=== PATIENT | male | born 1950 | race Caucasian/White ===

== ENCOUNTER 2019-10-10 06:43 | Outpatient (REF) | payer MEDICARE, BC, SELFPAY ==
[2019-10-10 12:55] LABS: Thyroid Stimulating Hormone 4.03 uIU/mL (0.27-4.20)
[2019-10-10 13:07] LABS: Chol HDL Ratio 3.35 mg/dL (1.0-5.00); Cholesterol 124 mg/dL (0-200); Glucose 133 mg/dL (65-115); HDL Cholesterol 37 mg/dL (60-100); LDL Cholesterol Calculated 70 mg/dL (50-129); LDL HDL Ratio 1.89 RATIO (0.00-3.22); Triglycerides 83 mg/dL (0-150)
[2019-10-10 13:23] LABS: Estmated Average Glucose 148; Hemoglobin A1C 6.8 % (4.0-6.0)
== END 2019-10-10 06:44 | disposition home or self-care (01) ==
LOC: LAB 06:43
PROVIDERS: Family Provider Family Medicine; PCP Family Medicine; Visit Provider Dermatology
DX: Z01.89 Encounter for other specified special examinations (principal)
CPT/HCPCS: 80061; 82947; 83036; 84153; 84443

== ENCOUNTER → 2019-11-18 07:50 | Outpatient (BNVA) | payer MEDICARE, BC, SELFPAY | PROVIDERS: Family Provider Family Medicine; PCP Family Medicine; Visit Provider Urology | DX: C61 Malignant neoplasm of prostate (principal) | CPT/HCPCS: 81001 ==

== ENCOUNTER → 2020-03-23 07:11 | Outpatient (BNVA) | payer MEDICARE, BC, SELFPAY | PROVIDERS: Family Provider Family Medicine; PCP Family Medicine; Visit Provider Urology | DX: C61 Malignant neoplasm of prostate (principal) | CPT/HCPCS: 81001; 84153 ==

== ENCOUNTER → 2020-07-26 07:49 | Outpatient (BNVA) | payer MEDICARE, BC, SELFPAY | PROVIDERS: Family Provider Family Medicine; PCP Family Medicine; Visit Provider Urology | DX: C61 Malignant neoplasm of prostate (principal); N39.3 Stress incontinence (female) (male); N52.31 Erectile dysfunction following radical prostatectomy | CPT/HCPCS: 81003; 84153 ==

== ENCOUNTER → 2021-01-24 07:53 | Outpatient (BNVA) | payer MEDICARE, BC, SELFPAY | PROVIDERS: Family Provider Family Medicine; PCP Family Medicine; Visit Provider Urology | DX: N39.3 Stress incontinence (female) (male) (principal); M54.5 Low back pain; C61 Malignant neoplasm of prostate; N52.31 Erectile dysfunction following radical prostatectomy | CPT/HCPCS: 81003 ==

== ENCOUNTER → 2021-01-28 09:43 | Outpatient (BNVA) | payer MEDICARE, BC, SELFPAY | PROVIDERS: Family Provider Family Medicine; PCP Family Medicine; Referring Provider Urology; Visit Provider Orthopaedic Surgery | DX: M43.17 Spondylolisthesis, lumbosacral region (principal); M51.37 Other intervertebral disc degeneration, lumbosacral region | CPT/HCPCS: 72110 ==

== ENCOUNTER → 2021-05-24 08:47 | Outpatient (BNVA) | payer SELFPAY | PROVIDERS: Family Provider Family Medicine; PCP Family Medicine; Visit Provider Family Medicine | DX: C61 Malignant neoplasm of prostate (principal); M54.5 Low back pain; N52.31 Erectile dysfunction following radical prostatectomy; N39.3 Stress incontinence (female) (male) | CPT/HCPCS: 80061 ==

== ENCOUNTER → 2021-07-27 08:19 | Outpatient (BNVA) | payer MEDICARE, BC, SELFPAY | PROVIDERS: Family Provider Family Medicine; PCP Family Medicine; Visit Provider Urology | DX: N39.3 Stress incontinence (female) (male) (principal); R97.20 Elevated prostate specific antigen [PSA]; C61 Malignant neoplasm of prostate | CPT/HCPCS: 81003; 84153 ==

== ENCOUNTER → 2022-01-24 07:54 | Outpatient (BNVA) | payer MEDICARE, BC, SELFPAY | PROVIDERS: Family Provider Family Medicine; PCP Family Medicine; Referring Provider Family Medicine; Visit Provider Surgery | DX: Z12.11 Encounter for screening for malignant neoplasm of colon (principal) | CPT/HCPCS: 99024; 99203 ==

== ENCOUNTER 2022-02-23 07:21 | Outpatient (CLI) | payer MEDICARE, BC, SELFPAY ==
[2022-02-23 08:30] LABS: Prostate Specific Antigen 0.179 ng/mL (0-4)
== END 2022-02-23 07:22 | disposition home or self-care (01) ==
LOC: LAB 07:21
PROVIDERS: PCP Family Medicine; Visit Provider Urology
DX: C61 Malignant neoplasm of prostate (principal); N39.3 Stress incontinence (female) (male); N52.31 Erectile dysfunction following radical prostatectomy
CPT/HCPCS: 36415; 81003; 84153; 99213

== ENCOUNTER 2022-04-05 07:45 | Day surgery (SDC) | payer MEDICARE, BC, SELFPAY ==
[2022-03-31 12:41] VITALS: BMI 29.0
[2022-04-05 08:00] VITALS: BP 133/83; PULSE 65; RESP 18; TEMP 36.1; O2SAT 94
[2022-04-05] MEDS: sodium chloride 0.9% 1,000 ML 30 ML IV (08:08)
--- NOTE | 2022-04-05 08:29 | ANES.PREANE2 ---
Pre-Anesthetic Assessment Height/Weight: Height 1.8 m Weight 94.347 kg Temp Pulse Resp BP Pulse Ox O2 Del Method 97.0 F L 65 18 133/83 94 04/05/22 08:00 04/05/22 08:00 04/05/22 08:00 04/05/22 08:00 04/05/22 08:00 04/05/22 08:00 Preop Diagnosis: diagnostic Operation Date: 04/05/22 09:00 Proposed Procedures p Colonoscopy 17426,Z12.11(Not Applicable) - Joseph Avila MD Familial anesthetic complications: NONE Was Beta Savage taken within 24 hours: Yes Was Clonidine taken within 24 hours: N/A Last intake: Intake Last Liquid Date 04/04/22 Last Liquid Time 21:30 Last Solid Date 04/03/22 Social No alcohol and No tobacco Exam alert, oriented x 3, clear to auscultation bilaterally and regular rate & rhythm Airway Submandibular: within normal limits Cervical ROM: within normal limits Mallampati: Class II Comments: Comments: missing some teeth Pulmonary None reported CV/HEM Coronary Artery Disease (S/P STENT ) and Hypertension Walks three miles a day Hx of prostate cancer Hepatic None reported GI None reported Metabolic Diabetes Mellitus Musc/skel Osteoarthritis/DJD and None reported Neuropsych None reported Anesthetic Plan ASA status: 3 (72 year old male with hx of CAD w/ stents, HTN, DM, prostate cancer ) Anesthesia: Anesthesia Evaluation, General and MAC Other: I discussed with the patient risks, goals, and benefits of MAC and general anesthesia. We discussed spectrum of MAC anesthesia including conversion to general as well as possibility of recall of intraoperative stimuli including discomfort/pain. Patient agrees to proceed with MAC. Risk of > 500 ml blood loss (7ml/kg in children): No Medications/Allergies Home Medications Medication Instructions Recorded Confirmed Last Taken Type amlodipine 10 mg tablet 10 mg PO DAILY 11/18/19 04/05/22 04/05/22 History atorvastatin 40 mg tablet 40 mg PO DAILY 11/18/19 04/05/22 04/04/22 History carvedilol 6.25 mg tablet 6.25 mg PO BID 11/18/19 04/05/22 04/05/22 History lisinopril 40 mg tablet 40 mg PO BID 11/18/19 04/05/22 04/04/22 History multivitamin,zc-[id number] 1 tab PO DAILY 11/18/19 04/05/22 04/04/22 History (Complete Multivitamin) niacin 500 mg capsule,extended 500 mg PO BID 11/18/19 04/05/22 04/04/22 History release nitroglycerin 0.4 mg sublingual 0.4 mg sublingual Q5M PRN Chest 11/18/19 03/31/22 Unknown History tablet (Nitrostat) Pain aspirin 81 mg tablet,delayed 81 mg PO DAILY 01/24/22 04/05/22 04/01/22 History release (Adult Low Dose Aspirin) alogliptin 12.5 mg-metformin 1,000 1 tab PO BID 03/31/22 04/05/22 04/04/22 History mg tablet isosorbide mononitrate 30 mg 30 mg PO DAILY 03/31/22 04/05/22 04/05/22 History tablet,extended release 24 hr Allergies Allergy/AdvReac Type Severity Reaction Status Date / Time No Known Allergies Allergy Verified 03/31/22 12:35 Current Medications Generic Name Dose Route Start Last Admin Trade Name Freq PRN Reason Stop Dose Admin Sodium Chloride 1,000 mls @ 30 mls/hr 04/05/22 08:00 04/05/22 08:08 Sodium Chloride 0.9% IV 04/06/22 07:59 30 mls/hr .Q24H JUDY Administration PFSH Anesthesia Medical History Erectile dysfunction Low back pain Prostate cancer Stress incontinence Surgical History H/O prostate biopsy H/O prostatectomy H/O shoulder surgery BILATERAL History of colonoscopy Hx of tonsillectomy S/P coronary artery stent placement Family History Father , AT AGE 58 Myocardial infarction acute Mother , AT AGE 75 Myocardial infarction acute Social History Smoking and tobacco status: never smoked Alcohol intake: never Adopted: No Caregiver/support person: No Lives independently: No Household members: spouse Marital status: Current occupational status: retired History of recent travel: No Current gender identity: Male Data Anesthesia Cardiac Studies: No Data to Display
--- NOTE | 2022-04-05 09:31 | P.HP_ITS ---
Same Day Surgery H&P Indication for Procedure/HPI DATE OF PROCEDURE: April 05, 2022 CHIEF COMPLAINT/INDICATIONFOR SURGICAL PROCEDURE: colonoscopy PREOP DIAGNOSIS: diagnostic PLANNED PROCEDURE: Operation Date: 04/05/22 09:00 Proposed Procedures p Colonoscopy 07069,Z12.11(Not Applicable) - Joseph Avila MD Medications/Allergies* Home Medications Medication Instructions Recorded Confirmed Type amlodipine 10 mg tablet 10 mg PO DAILY 11/18/19 04/05/22 History atorvastatin 40 mg tablet 40 mg PO DAILY 11/18/19 04/05/22 History carvedilol 6.25 mg tablet 6.25 mg PO BID 11/18/19 04/05/22 History lisinopril 40 mg tablet 40 mg PO BID 11/18/19 04/05/22 History multivitamin,[id number]-[id number] 1 tab PO DAILY 11/18/19 04/05/22 History (Complete Multivitamin) niacin 500 mg capsule,extended 500 mg PO BID 11/18/19 04/05/22 History release nitroglycerin 0.4 mg sublingual 0.4 mg sublingual Q5M PRN Chest 11/18/19 03/31/22 History tablet (Nitrostat) Pain aspirin 81 mg tablet,delayed 81 mg PO DAILY 01/24/22 04/05/22 History release (Adult Low Dose Aspirin) alogliptin 12.5 mg-metformin 1,000 1 tab PO BID 03/31/22 04/05/22 History mg tablet isosorbide mononitrate 30 mg 30 mg PO DAILY 03/31/22 04/05/22 History tablet,extended release 24 hr Allergies/Adverse Reactions Allergy/AdvReac Type Severity Reaction Status Date / Time No Known Allergies Allergy Verified 03/31/22 12:35 Current Medications: Generic Name Dose Route Start Last Admin Trade Name Freq PRN Reason Stop Dose Admin Sodium Chloride 1,000 mls @ 30 mls/hr 04/05/22 08:00 04/05/22 08:08 Sodium Chloride 0.9% IV 04/06/22 07:59 30 mls/hr .Q24H JUDY Administration Pertinent History/Comorbid Conditions* Medical History (Updated 01/24/21 @ 08:14 by Gregg Millan MD) Erectile dysfunction Low back pain Prostate cancer Stress incontinence Surgical History (Updated 01/24/22 @ 08:12 by Joseph Avila MD) H/O prostate biopsy H/O prostatectomy H/O shoulder surgery BILATERAL History of colonoscopy Hx of tonsillectomy S/P coronary artery stent placement Family History (Updated 11/12/19 @ 12:24 by Roseann Regalado LPN) Father, AT AGE 58 Mother, AT AGE 75 Myocardial infarction acute Father Mother Social History Smoking and tobacco status: never smoked Alcohol intake: never Adopted: No Caregiver/support person: No Lives independently: No Household members: spouse Marital status: Current occupational status: retired History of recent travel: No Current gender identity: Male Pertinent Exam Findings alert, oriented x 3 and regular rate & rhythm Recommendations Surgery/Procedure today Coding Level of Care Code Acute Pay Station Department Manager for Radha Ghotra
[2022-04-05 10:08] VITALS: BP 105/69; PULSE 61; RESP 20; TEMP 36.1; O2SAT 92
[2022-04-05 10:21] VITALS: BP 133/80; RESP 18; O2SAT 93
--- NOTE | 2022-04-05 14:28 | ANE.PACU2 ---
Inpatient post-anesthesia follow up: Airway intact: Yes Vital signs: Temperature 97 F Pulse Rate 61 Respiratory Rate 18 Blood Pressure 133/80 Pulse Oximetry 93 Oxygen Delivery Me thod Room Air Oxygen Flow Rate 3 Fraction of Inspir ed Oxygen Hydration adequate: Yes Nausea and vomiting: No Pain level: 1 Mental status: Baseline
== END 2022-04-05 10:35 | disposition home or self-care (01) ==
PROVIDERS: PCP Family Medicine; Visit Provider Surgery
PROC: 0DJD8ZZ Inspection of Lower Intestinal Tract, Via Natural or Artificial Opening Endoscopic (ICD-10-PCS; CPT 45378; principal; 2022-04-05 09:00)
DX: Z12.11 Encounter for screening for malignant neoplasm of colon (principal); D12.2 Benign neoplasm of ascending colon; D12.0 Benign neoplasm of cecum; D12.4 Benign neoplasm of descending colon; K57.30 Diverticulosis of large intestine without perforation or abscess without bleeding; K64.8 Other hemorrhoids; I25.10 Atherosclerotic heart disease of native coronary artery without angina pectoris; I10 Essential (primary) hypertension; Z95.5 Presence of coronary angioplasty implant and graft; E11.9 Type 2 diabetes mellitus without complications; M19.90 Unspecified osteoarthritis, unspecified site; Z85.46 Personal history of malignant neoplasm of prostate
CPT/HCPCS: 45385; 88305; J2704; J7030

== ENCOUNTER → 2022-04-11 09:52 | Outpatient (BNVA) | payer MEDICARE, BC, SELFPAY | PROVIDERS: PCP Family Medicine; Visit Provider Surgery | DX: Z98.890 Other specified postprocedural states (principal) | CPT/HCPCS: 99212 ==

== ENCOUNTER 2022-05-22 13:22 | Outpatient (CLI) | payer MEDICARE, BC, SELFPAY ==
[2022-05-22 14:12] LABS: Prostate Specific AG Urology 0.19 ng/mL (0-4)
== END 2022-05-22 13:23 | disposition home or self-care (01) ==
LOC: LAB 13:25
PROVIDERS: PCP Family Medicine; Visit Provider Urology
DX: C61 Malignant neoplasm of prostate (principal)
CPT/HCPCS: 36415; 84153

== ENCOUNTER → 2022-05-30 08:07 | Outpatient (BNVA) | payer MEDICARE, BC, SELFPAY | PROVIDERS: PCP Family Medicine; Visit Provider Urology | DX: C61 Malignant neoplasm of prostate (principal); R97.21 Rising PSA following treatment for malignant neoplasm of prostate; N52.31 Erectile dysfunction following radical prostatectomy; N39.3 Stress incontinence (female) (male) | CPT/HCPCS: 81003; 99213 ==

== ENCOUNTER 2022-08-06 13:31 | Emergency (ER) | payer MEDICARE, BC, SELFPAY ==
[2022-08-06 13:35] VITALS: BP 181/90; PULSE 83; RESP 16; TEMP 36.4; O2SAT 97
--- NOTE | 2022-08-06 13:41 | W.ED.EXTPRO ---
HPI - Extremity Problem General: Chief complaint: Extremity Problem,Nontraumatic Stated complaint: ultrasound;by alexis meza Time Seen by Provider: 08/06/22 13:41 History of Present Illness: Mr. Castañeda is a 72-year-old gentleman with history of prostate cancer presenting to the emergency department due to knee and leg pain. He reports in June having an injury related to the left knee which has subsequently been identified as a meniscal tear on MRI. He has had pain in instability with ambulation and a weakness sensation since then however over the past few days has noticed increased pain, redness, swelling. Denies history of blood clots or chest pain/shortness of breath. Denies fevers. Overall course of symptoms has worsened. Intensity is moderate. Has taken Tylenol at home. No other specific changes in health, exacerbating, or alleviating factors identified. Onset (ago): day(s) Pain Consistency: constant Location: left and lower extremity Quality: aching Relieving factors: nothing Exacerbating factors: walking and exertion Review of Systems General: Reports: 10 or more systems reviewed and unremarkable except in HPI and below PFSH ED PFSH: Medical History Erectile dysfunction Low back pain Prostate cancer Stress incontinence Surgical History H/O prostate biopsy H/O prostatectomy H/O shoulder surgery BILATERAL History of colonoscopy (04/05/22) Hx of tonsillectomy S/P coronary artery stent placement Family History Father , AT AGE 58 Myocardial infarction acute Mother , AT AGE 75 Myocardial infarction acute Social History Smoking and tobacco status: never smoked Alcohol intake: never Adopted: No Caregiver/support person: No Lives independently: No Household members: spouse Marital status: Current occupational status: retired History of recent travel: No Current gender identity: Male Physical Exam Const: COMMON NORMALS: alert GENERAL APPEARANCE: cooperative and well developed HENMT: COMMON NORMALS: normocephalic and atraumatic HEAD & SCALP: normocephalic and atraumatic Eye: COMMON NORMALS: conjunctivae normal CONJUNCTIVA: Yes conjunctivae normal SCLERA: sclerae normal Neck/C-Spine: COMMON NORMALS: supple GENERAL: Yes trachea midline Resp: COMMON NORMALS: clear to auscultation bilaterally EFFORT & INSPECTION: Yes able to speak in complete sentences AUSCULTATION: clear to auscultation bilaterally Cardio: COMMON NORMALS: regular rate and regular rhythm RATE: regular rate RHYTHM: regular rhythm GI: COMMON NORMALS: Soft to palpation PALPATION: Yes Soft to palpation and No Tenderness to palpation present (GI) Extremity: NARRATIVE EXTREMITY EXAM: Left lower extremity mild edema which is nonpitting primarily from the knee down, mild tenderness to palpation. Some erythema without vesicular or blistering lesions. No open wounds. Distal CMS intact. GENERAL: Yes normal exam except as noted and No edema Neuro: COMMON NORMALS: moves all extremities SENSORIUM/ORIENTATION: Yes alert and No Orientation impaired Psych: COMMON NORMALS: mental status grossly normal and Normal thought process present THOUGHT PROCESS: Normal thought process present Course Vital Signs: Vital signs: Vital Signs Temperature 97.6 F 08/06/22 13:35 Pulse Rate 83 08/06/22 13:35 Respiratory Rate 16 08/06/22 13:35 Blood Pressure 181/90 08/06/22 13:35 Pulse Oximetry 97 08/06/22 13:35 MDM - Extremity (Nontraumatic) Medical Decision Making 72-year-old gentleman presented to the emergency [place] for nontraumatic lower extremity swelling and pain. Referred by outside clinic for ultrasound. Exam as above. Ultrasound negative for DVT. Given some evidence of erythema on clinical exam most likely cause of patient symptoms is cellulitis. The results of ED evaluation were discussed with the patient including prescriptions and/or symptomatic cares (if applicable) including appropriate and responsible use, followup plan, and return precautions. The patient verbalized understanding and felt safe for discharge. Medical Records I reviewed the patient's medical records. Lab Data I reviewed the patient's lab results. Radiology Impressions Venous Duplex 08/06/22 13:46 IMPRESSION: No evidence of deep vein thrombosis. Discharge Plan Discharge Patient Disposition: Home Clinical Impression: Left leg swelling, Cellulitis Condition: Stable Prescriptions: No Action amlodipine 10 mg tablet 10 mg PO DAILY atorvastatin 40 mg tablet 40 mg PO DAILY lisinopril 40 mg tablet 40 mg PO BID nitroglycerin [Nitrostat] 0.4 mg tablet, sublingual 0.4 mg SUBLINGUAL Q5M PRN (Reason: Chest Pain) carvedilol 6.25 mg tablet 6.25 mg PO BID niacin 500 mg capsule, extended release 500 mg PO BID Complete Multivitamin Tablet 1 tab PO DAILY aspirin [Adult Low Dose Aspirin] 81 mg tablet,delayed release (DR/EC) 81 mg PO DAILY isosorbide mononitrate 30 mg tablet extended release 24 hr 30 mg PO DAILY alogliptin-metformin 12.5-1,000 mg tablet 1 tab PO BID Discharge Orders: Discharge ED (Routine); Ordered 08/06/22 Ordered By: Donny Salamanca Referrals: Marie Cabello MD [Primary Care Provider] - Discharge Diet: Usual diet Discharge Activity: Limit activity as instructed Patient Instructions: Cellulitis (ED), Pain Management Activity Restrictions/Additional Instructions: Thank you for visiting the emergency department. You were seen and evaluate for leg pain, redness, swelling. The exact cause of your symptoms is unclear though may be related to mild cellulitis which will be treated with antibiotics. Please continue your previously instructed treatment for your knee. Please follow-up with orthopedics. Return to the emergency department for worsening symptoms or anything else that you are concerned about a feel needs emergency department evaluation. Coding Level of Care Code ED Club Manager for Radha Ghotra Exam Comprehensive
--- NOTE | 2022-08-06 13:46 | USR_ITS ---
PROCEDURE INFORMATION: Exam: US Duplex Left Lower Extremity Veins, Limited Exam date and time: 08/06/2022 3:19 PM Age: 72 years old Clinical indication: Pain; Leg, lower; Left; Additional info: Lle pain, swelling TECHNIQUE: Imaging protocol: Real-time Duplex ultrasound of the Left Lower Extremity with 2-D lechuga scale, color Doppler flow and spectral waveform analysis with image documentation. Limited exam focused on the left lower extremity veins. COMPARISON: No relevant prior studies available. FINDINGS: Left deep veins: Unremarkable. The common femoral, femoral, proximal profunda femoral and popliteal veins are patent without thrombus. Normal Doppler waveforms. Normal compressibility and/or augmentation response. Left superficial veins: Unremarkable. Saphenofemoral junction is patent without thrombus. Soft tissues: Unremarkable. US/CV venous duplex [facility] [id number] IMPRESSION: No evidence of deep vein thrombosis.
--- NOTE | 2022-08-06 14:00 | PC.NURSE ---
pt reports left lateral knee pain when standing, worse with walking. denies pain/tenderness to his calf. denies pain with ROM to left leg. swelling noted to left knee reports warmth and swelling has been present since hurting it 06/30/22. had an MRI done in [place]. Reports came into ER because his wanted him to. states last night it was red but that has since resolved. pt speech clear, speaking in complete sentences without difficulty, lung sounds clear bilat.
== END 2022-08-06 17:05 | disposition home or self-care (01) ==
PROVIDERS: Emergency Provider Emergency Medicine; PCP Family Medicine
DX: M79.605 Pain in left leg (principal); M79.89 Other specified soft tissue disorders; L03.116 Cellulitis of left lower limb
CPT/HCPCS: 93971; 99284

== ENCOUNTER 2022-10-23 16:18 | Outpatient (CLI) | payer MEDICARE, SELFPAY ==
--- NOTE | 2022-10-23 | USCV_ITS ---
Talat Castañeda Age: 72 Gender: M : 1950 Exam Date: 10/23/2022 16:35 Ordering Phys: Wes Rendon MD Technologist: CT Exam Location: [facility] – [place]_ Indication: swelling PROCEDURES: Venous duplex imaging was performed in only the left lower extremity. In addition, the posterior tibial and peroneal trunk were evaluated. On the left side, the common femoral, superficial femoral, profunda femoral, popliteal, posterior tibial, greater saphenous veins, and the peroneal trunk were identified and interrogated in the standard fashion. These veins were found to be easily compressible with spontaneous blood flow. No evidence of insufficiency or thrombus noted. FINDINGS: normal us CONCLUSIONS No evidence of left lower extremity DVT. Pedrito Goins MD (Electronically Signed) Final Date: 23 October 2022 17:07 S
== END 2022-10-23 16:19 | disposition home or self-care (01) ==
PROVIDERS: PCP Family Medicine; Visit Provider Orthopaedic Surgery
DX: R22.42 Localized swelling, mass and lump, left lower limb (principal)
CPT/HCPCS: 93971

== ENCOUNTER 2022-11-20 07:51 | Outpatient (CLI) | payer MEDICARE, SELFPAY ==
[2022-11-20 08:49] LABS: Prostate Specific AG Urology 0.24 ng/mL (0-4)
== END 2022-11-20 07:52 | disposition home or self-care (01) ==
LOC: LAB 07:54
PROVIDERS: PCP Family Medicine; Visit Provider Urology
DX: R97.21 Rising PSA following treatment for malignant neoplasm of prostate (principal)
CPT/HCPCS: 36415; 84153

== ENCOUNTER → 2022-11-28 09:11 | Outpatient (BNVA) | payer MEDICARE, SELFPAY | PROVIDERS: PCP Family Medicine; Visit Provider Urology | DX: R97.21 Rising PSA following treatment for malignant neoplasm of prostate (principal); C61 Malignant neoplasm of prostate; N39.3 Stress incontinence (female) (male) | CPT/HCPCS: 81003; 99213 ==

== ENCOUNTER → 2024-07-15 10:32 | Outpatient (BNVA) | payer MEDICARE, SELFPAY | PROVIDERS: PCP Family Medicine; Referring Provider Family Medicine; Visit Provider Nurse Practitioner Family | DX: D48.5 Neoplasm of uncertain behavior of skin (principal); L57.0 Actinic keratosis; L81.4 Other melanin hyperpigmentation; L57.8 Other skin changes due to chronic exposure to nonionizing radiation; Z85.828 Personal history of other malignant neoplasm of skin | CPT/HCPCS: 11102; 17000; 99203 ==

== ENCOUNTER → 2024-10-21 10:07 | Outpatient (BNVA) | payer MEDICARE, SELFPAY | PROVIDERS: PCP Family Medicine; Visit Provider Orthopaedic Surgery | DX: M79.642 Pain in left hand (principal); M65.342 Trigger finger, left ring finger | CPT/HCPCS: 20600; 73130; 99214; J3301; J3490 ==

== ENCOUNTER → 2024-11-18 08:20 | Outpatient (BNVA) | payer MEDICARE, SELFPAY | PROVIDERS: PCP Family Medicine; Visit Provider Nurse Practitioner Family | DX: L81.4 Other melanin hyperpigmentation (principal); L82.1 Other seborrheic keratosis; Z08 Encounter for follow-up examination after completed treatment for malignant neoplasm; Z85.828 Personal history of other malignant neoplasm of skin; Z09 Encounter for follow-up examination after completed treatment for conditions other than malignant neoplasm; Z87.2 Personal history of diseases of the skin and subcutaneous tissue; D48.5 Neoplasm of uncertain behavior of skin; L57.0 Actinic keratosis | CPT/HCPCS: 11102; 17000; 99213 ==

== ENCOUNTER → 2024-12-08 09:44 | Outpatient (BNVA) | payer MEDICARE, SELFPAY | PROVIDERS: PCP Family Medicine; Visit Provider Dermatology | DX: C44.41 Basal cell carcinoma of skin of scalp and neck (principal) | CPT/HCPCS: 13121; 17311 ==

== ENCOUNTER → 2025-01-08 14:40 | Outpatient (BNVA) | payer MEDICARE, SELFPAY | PROVIDERS: PCP Family Medicine; Visit Provider Nurse Practitioner Family | DX: L81.4 Other melanin hyperpigmentation (principal); L57.8 Other skin changes due to chronic exposure to nonionizing radiation; X32.XXXA Exposure to sunlight, initial encounter; L82.1 Other seborrheic keratosis; D22.5 Melanocytic nevi of trunk; Z08 Encounter for follow-up examination after completed treatment for malignant neoplasm; Z85.828 Personal history of other malignant neoplasm of skin | CPT/HCPCS: 99213 ==

== ENCOUNTER → 2025-02-03 08:59 | Outpatient (BNVA) | payer MEDICARE, SELFPAY | PROVIDERS: PCP Family Medicine; Visit Provider Nurse Practitioner Family | DX: D48.5 Neoplasm of uncertain behavior of skin (principal); L57.8 Other skin changes due to chronic exposure to nonionizing radiation; X32.XXXA Exposure to sunlight, initial encounter; L81.4 Other melanin hyperpigmentation; L82.1 Other seborrheic keratosis; Z08 Encounter for follow-up examination after completed treatment for malignant neoplasm; Z85.828 Personal history of other malignant neoplasm of skin | CPT/HCPCS: 99213 ==

== ENCOUNTER → 2025-02-18 10:43 | Outpatient (BNVA) | payer MEDICARE, SELFPAY | PROVIDERS: PCP Family Medicine; Visit Provider Dermatology | DX: Z08 Encounter for follow-up examination after completed treatment for malignant neoplasm (principal); Z85.828 Personal history of other malignant neoplasm of skin; D37.01 Neoplasm of uncertain behavior of lip | CPT/HCPCS: 40490; 99212 ==

== ENCOUNTER → 2025-03-10 12:24 | Outpatient (BNVA) | payer MEDICARE, SELFPAY | PROVIDERS: PCP Family Medicine; Visit Provider Dermatology | DX: L56.8 Other specified acute skin changes due to ultraviolet radiation (principal) | CPT/HCPCS: 99213 ==

== ENCOUNTER → 2025-04-14 12:24 | Outpatient (BNVA) | payer MEDICARE, SELFPAY | PROVIDERS: PCP Family Medicine; Visit Provider Dermatology | DX: L57.8 Other skin changes due to chronic exposure to nonionizing radiation (principal); D69.2 Other nonthrombocytopenic purpura; L56.8 Other specified acute skin changes due to ultraviolet radiation; L57.0 Actinic keratosis | CPT/HCPCS: 17000; 99213 ==

== ENCOUNTER → 2025-05-18 08:09 | Outpatient (BNVA) | payer MEDICARE, SELFPAY | PROVIDERS: PCP Family Medicine; Visit Provider Nurse Practitioner Family | DX: L56.8 Other specified acute skin changes due to ultraviolet radiation (principal); L57.8 Other skin changes due to chronic exposure to nonionizing radiation; X32.XXXA Exposure to sunlight, initial encounter; D18.01 Hemangioma of skin and subcutaneous tissue; L81.4 Other melanin hyperpigmentation; L82.1 Other seborrheic keratosis; Z08 Encounter for follow-up examination after completed treatment for malignant neoplasm; Z85.828 Personal history of other malignant neoplasm of skin; L57.0 Actinic keratosis | CPT/HCPCS: 17000; 99213 ==

== ENCOUNTER → 2025-08-17 10:04 | Outpatient (BNVA) | payer MEDICARE, SELFPAY | PROVIDERS: PCP Family Medicine; Visit Provider Dermatology | DX: L56.8 Other specified acute skin changes due to ultraviolet radiation (principal); L57.8 Other skin changes due to chronic exposure to nonionizing radiation; X32.XXXA Exposure to sunlight, initial encounter; D18.01 Hemangioma of skin and subcutaneous tissue; L81.4 Other melanin hyperpigmentation; L82.1 Other seborrheic keratosis; Z08 Encounter for follow-up examination after completed treatment for malignant neoplasm; Z85.828 Personal history of other malignant neoplasm of skin; L57.0 Actinic keratosis | CPT/HCPCS: 17000; 99213 ==